=== PATIENT | male | born 1995 | race African-American/Black ===

== ENCOUNTER 2021-09-13 06:21 | Day surgery (SDC) | payer OTHER ==
[2021-09-09 12:43] VITALS: BMI 23.7
[2021-09-13] MEDS ORDERED: BUPIVACAINE HCL 100 ML ONE (07:21)
[2021-09-13] MEDS ORDERED: fentaNYL CITRATE 250 MCG/5 ML VIAL ONE (07:39)
[2021-09-13] MEDS ORDERED: ROCURONIUM BROMIDE 50 MG/5 ML SYRINGE ONE (07:39)
[2021-09-13] MEDS ORDERED: PROPOFOL 20 ML ONE ×2 (07:39→09:53)
[2021-09-13] MEDS ORDERED: MIDAZOLAM HCL 2 MG/2 ML SINGLE DOSE VIAL ONE ×2 (07:39)
[2021-09-13] MEDS ORDERED: CITRIC ACID/SODIUM CITRATE 30 ML UNIT-DOSE CUP ONE (07:47)
[2021-09-13] MEDS ORDERED: ONDANSETRON 4 MG/2 ML VIAL ONE (08:58)
[2021-09-13] MEDS ORDERED: DEXAMETHASONE SOD PHOSPHATE 4 MG/1 ML VIAL ONE (08:58)
[2021-09-13] MEDS ORDERED: KETOROLAC TROMETHAMINE 30 MG/1 ML VIAL ONE (08:58)
[2021-09-13] MEDS ORDERED: ceFAZolin SODIUM 1 GM VIAL ONE (08:58)
[2021-09-13] MEDS ORDERED: ACETAMINOPHEN INJECTION 100 ML IVPB ONE (10:17)
[2021-09-13] MEDS ORDERED: PROMETHAZINE HCL 25 MG/1 ML VIAL IVPUSH PRN (10:18)
[2021-09-13] MEDS ORDERED: oxyCODONE HCL 5 MG TABLET PO PRN (10:18)
[2021-09-13] MEDS ORDERED: ONDANSETRON 4 MG/2 ML VIAL IVPUSH PRN (10:18)
[2021-09-13] MEDS ORDERED: ACETAMINOPHEN 1000 MG/100 ML BAG IVPB ONE (10:19)
[2021-09-13] MEDS ORDERED: MEPERIDINE HCL 25 MG/ML VIAL IVPUSH ONE (10:20)
[2021-09-13] MEDS ORDERED: LACTATED RINGERS SOLUTION 1,000 ML IV SCH (10:30)
[2021-09-13 11:02] VITALS: TEMP 97.6
[2021-09-13 11:27] VITALS: BP 122/64; PULSE 56
== END 2021-09-13 11:50 | disposition home or self-care (01) ==
LOC: FASU 06:21
PROVIDERS: ATTEND Orthopaedic Surgery
PROC: 01N40ZZ Release Ulnar Nerve, Open Approach (ICD-10-PCS; principal; 2021-09-13 08:31)
DX: G56.22 Lesion of ulnar nerve, left upper limb (principal)
CPT/HCPCS: 94760

== ENCOUNTER 2021-09-26 06:00 | Day surgery (SDC) | payer OTHER ==
[2021-09-25 14:37] VITALS: BMI 23.7
[2021-09-26] MEDS ORDERED: BUPIVACAINE HCL/EPINEPHRINE/PF 30 ML VIAL IJ ONE (07:05)
[2021-09-26] MEDS ORDERED: BUPIVACAINE HCL/PF 2.5 MG/ML - 30 ML VIAL IJ ONE (07:10)
[2021-09-26] MEDS ORDERED: VANCOMYCIN 1,000 MG VIAL (RESTRICTED TO ID ONLY) ONE (07:21)
[2021-09-26] MEDS ORDERED: PROPOFOL 20 ML ONE ×3 (07:26→09:33)
[2021-09-26] MEDS ORDERED: SUCCINYLCHOLINE CHLORIDE 200 MG/10 ML SYRINGE ONE (07:26)
[2021-09-26] MEDS ORDERED: MIDAZOLAM HCL 2 MG/2 ML SINGLE DOSE VIAL ONE ×3 (07:26→09:13)
[2021-09-26] MEDS ORDERED: ACETAMINOPHEN 325 MG TABLET (FP) PO PRN (07:31)
[2021-09-26] MEDS ORDERED: oxyCODONE HCL 5 MG TABLET PO PRN ×2 (07:31→10:01)
[2021-09-26] MEDS ORDERED: LIDOCAINE HCL 2% JELLY (5 ML/TUBE) ONE (09:13)
[2021-09-26] MEDS ORDERED: TRANEXAMIC ACID 1000 MG/10 ML VIAL ONE (09:13)
[2021-09-26] MEDS ORDERED: ONDANSETRON 4 MG/2 ML VIAL ONE (09:13)
[2021-09-26] MEDS ORDERED: KETOROLAC TROMETHAMINE 30 MG/1 ML VIAL ONE (09:13)
[2021-09-26] MEDS ORDERED: LIDOCAINE HCL/PF 2% SDV 5ML VIAL ONE (09:13)
[2021-09-26] MEDS ORDERED: DEXAMETHASONE SOD PHOSPHATE 4 MG/1 ML VIAL ONE (09:13)
[2021-09-26] MEDS ORDERED: ONDANSETRON 4 MG/2 ML VIAL IVPUSH PRN (10:01)
[2021-09-26] MEDS ORDERED: ACETAMINOPHEN 1000 MG/100 ML BAG IVPB PRN (10:02)
[2021-09-26] MEDS ORDERED: LACTATED RINGERS SOLUTION 1,000 ML IV SCH (10:15)
[2021-09-26 11:26] VITALS: PULSE 76; TEMP 97.8
[2021-09-26 13:03] VITALS: BP 120/66
== END 2021-09-26 13:20 | disposition home or self-care (01) ==
LOC: FASU 06:00
PROVIDERS: ATTEND Orthopaedic Surgery
PROC: 0LX40ZZ Transfer Left Upper Arm Tendon, Open Approach (ICD-10-PCS; principal; 2021-09-26 08:05)
DX: M24.822 Other specific joint derangements of left elbow, not elsewhere classified (principal)
CPT/HCPCS: 94760